=== PATIENT | female | born 1955 | race Caucasian/White ===

== ENCOUNTER 2017-12-17 14:21 | Outpatient (CLI) | payer BC ==
--- NOTE | 2017-12-17 16:55 | MRI ---
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 COMPARISON: 12/12/14 and 11/05/12. TECHNIQUE: Multiple sequences obtained in axial, sagittal, and coronal planes; both whole brain images and thin slices through the IAC's, pre and post IV injection of gadolinium-based contrast agent: 14 mL of Mult ihance. FINDINGS: Again demonstrated is the enhancing solid mass at the right cerebellopontine angle cistern, displacin g the dominic and right middle cerebral peduncle mildly to the left, and filling the majority of the vol ume of the right internal auditory canal. Exact measurements depend on particular placement of cursor s. Rough dimensions are approximately 15 x 15 x 14 mm. This has not significantly changed in size, al lowing for differences in exact cursor placement, compared to 2011 and 2014. In addition to completely enveloping the right 7th-8th nerve complex, the mass also chronically impin ges on the root entry zone of the right 5th cranial nerve (right trigeminal nerve), at the dominic. There are minimal chronic ischemic white matter changes of the cerebrum. No obstructive hydrocephalus . No abnormal intra-axial enhancement, restricted diffusion, supratentorial mass effect, midline shif t, or extra-axial fluid collection. IMPRESSION: 1. Right vestibular schwannoma (aka acoustic neuroma) at the right cerebellopontine angle and ri ght internal auditory canal, unchanged since 11/05/2012. 2. It is slightly smaller than it was in 06/04/2010. SIENNA Rossi POS: YUNG
== END 2017-12-17 14:22 | disposition home or self-care (01) ==
LOC: MRI 14:21 → TBSIIMAG 14:22
PROVIDERS: ATTEND Neurological Surgery
DX: D49.6 Neoplasm of unspecified behavior of brain (principal); D33.3 Benign neoplasm of cranial nerves
CPT/HCPCS: 70553

== ENCOUNTER 2018-03-04 08:18 | Outpatient (CLI) | payer BC | END 2018-03-04 08:19 | disposition home or self-care (01) | LOC: BICMAMMO 08:18 | PROVIDERS: ATTEND Family Medicine | DX: Z12.31 Encounter for screening mammogram for malignant neoplasm of breast (principal) | CPT/HCPCS: 77063; 77067 ==

== ENCOUNTER 2019-03-07 10:49 | Outpatient (CLI) | payer BC ==
--- NOTE | 2019-03-07 13:50 | MMO ---
Bilateral MAMMO Bilat Screen [facility]. CLINICAL HISTORY: Patient is 63 years old and is seen for screening. The patient has no family history of breast cancer. The patient has no personal history of cancer. VIEWS: The views performed were: bilateral craniocaudal with tomosynthesis and bilateral mediolateral oblique with tomosynthesis. FILMS COMPARED: The present examination has been compared to prior imaging studies performed at [facility] on 07/31/2004, 09/16/2005, 09/17/2006, 11/30/2007, 12/01/2008, 12/24/2009, 12/25/2010, 12/26/2011, 12/27/2012, 02/02/2014, 02/06/2015, 02/08/2016, 02/25/2017 and 03/04/2018, and at [facility] on 03/24/2003. MAMMOGRAM FINDINGS: The breasts are heterogeneously dense, which could obscure a lesion on mammography. There are no suspicious masses, suspicious calcifications, or new areas of architectural distortion. IMPRESSION: THERE IS NO MAMMOGRAPHIC EVIDENCE OF MALIGNANCY. A ROUTINE FOLLOW-UP MAMMOGRAM IN 1 YEAR IS RECOMMENDED. THE RESULTS OF THIS EXAM WERE SENT TO THE PATIENT. ACR BI-RADS Category 1 - Negative MAMMOGRAPHY NOTE: 1. A negative mammogram report should not delay a biopsy if a dominant of clinically suspicious mass is present. 2. Approximately 10% to 15% of breast cancers are not detected by mammography. 3. Adenosis and dense breasts may obscure an underlying neoplasm.
== END 2019-03-07 10:50 | disposition home or self-care (01) ==
LOC: BICMAMMO 10:49
PROVIDERS: ATTEND Family Medicine
DX: Z12.31 Encounter for screening mammogram for malignant neoplasm of breast (principal)
CPT/HCPCS: 77063; 77067

== ENCOUNTER 2019-08-19 21:14 | Emergency (ER) | payer BC ==
[2019-08-19 21:56] LABS: #Eosinphils 0.7 thou/uL (0.0-0.7); #Lymphocytes 1.9 thou/uL (1.20-3.40); #Monocytes 0.8 thou/uL (0.11-0.59); #Neutrophils 4.5 thou/uL (1.40-6.50); %Basophils 0.6 % (0.0-1.0); %Eosinophils 8.4 % (0.0-10.0); %Lymphocytes 24.1 % (21.0-51.0); %Monocytes 10.1 % (0.0-10.0); %Neutrophils 56.8 % (42.0-75.0); Mean Corpuscular HGB CONC 34.1 g/dL (32.0-36.0); Mean Corpuscular Volume 90.8 fL (78.0-98.0); Mean Platelet Volume 6.9 fL (7.4-10.4); Platelet Count 286 thou/uL (130-400); RBC Distribution Width 12.7 % (11.5-14.5); Red Blood Cell (RBC) Count 4.86 mill/uL (4.20-5.40); White Blood Cell (WBC) Count 7.9 thou/uL (4.8-10.8)
[2019-08-19 21:59] LABS: Bacteria/HPF None Seen HPF (None Seen); Bilirubin Negative (Negative); Blood, Urine Negative (Negative); Clarity Clear (Clear); Glucose, Urine (Dipstick) Normal (Negative); Leukocyte 250 Leu/uL (Negative); Nitrite Negative (Negative); Protein, Urine (Dipstick) 20 mg/dL (Neg-Trace); RBC/HPF 0-3 HPF (0-3); Urobilinogen Normal mg/dL (Less than 2)
[2019-08-19] MEDS ORDERED: Ondansetron PF 4 MG/2 ML Vial ONE (22:03)
[2019-08-19] MEDS ORDERED: Morphine 4 MG/ML VIAL ONE (22:03)
[2019-08-19 22:09] LABS: ALT (SGPT) 34 U/L (8-55); AST (SGOT) 29 U/L (5-34); Albumin 4.1 g/dL (3.4-4.8); Alkaline Phosphatase 102 U/L (40-110); Anion Gap 15 mmol/L (10-20); BUN (Urea Nitrogen) 11 mg/dL (9.8-20.1); Bilirubin, Total 0.2 mg/dL (0.2-1.2); Calc. Creatinine Clearance 0 mL/min (70-130); Calcium 9.2 mg/dL (7.8-10.44); Carbon Dioxide 26 mmol/L (23-31); Chloride 95 mmol/L (98-107); Estimated GFR-MDRD 63; Globulin 2.6 g/dL (2.4-3.5); Glucose 96 mg/dL (80-115); Potassium 3.7 mmol/L (3.5-5.1); Protein, Total 6.7 g/dL (6.0-8.3); Sodium 132 mmol/L (136-145)
--- NOTE | 2019-08-19 22:58 | ULT ---
US Gallbladder RUQ HISTORY: Right upper quadrant pain. COMPARISON: None. FINDINGS: Real-time imaging of the right upper quadrant shows a slightly distended gallbladder with w hat appears be some minimal sludge but no stones identified. No gallbladder wall thickening. There is a negative ultrasound Casillas sign. The common duct is 5 mm. Visualized liver parenchyma shows no f ocal findings. Right kidney is normal in size and not obstructed. The pancreas is obscured. IMPRESSION: Slightly distended gallbladder with minimal sludge.
== END 2019-08-20 00:15 | disposition home or self-care (01) ==
LOC: ERS 21:14
DX: R11.2 Nausea with vomiting, unspecified (principal); G43.909 Migraine, unspecified, not intractable, without status migrainosus; Z79.899 Other long term (current) drug therapy
CPT/HCPCS: 76705; 80053; 81003; 81015; 83690; 85025; 96374; 96375; J2270; J2405

== ENCOUNTER 2019-11-10 07:31 | Outpatient (CLI) | payer BC ==
--- NOTE | 2019-11-10 10:49 | NM ---
HEPATOBILIARY SCAN: HISTORY:Right upper quadrant pain. No gallstones and ultrasound of 08/19/2019 RADIOPHARMACEUTICAL: 5 mCi Technetium 99m Mebrofenin injected intravenously FINDINGS: There is normal tracer extraction by the liver with normal excretion into the biliary tracts and smal l bowel loops and normal filling of the gallbladder. The calculated gallbladder ejection fraction following an oral fatty meal measures 99%. IMPRESSION:Normal exam.
== END 2019-11-10 07:32 | disposition home or self-care (01) ==
LOC: NM 07:31
PROVIDERS: ATTEND Internal Medicine Gastroenterology
DX: K31.5 Obstruction of duodenum (principal); R93.5 Abnormal findings on diagnostic imaging of other abdominal regions, including retroperitoneum; R10.11 Right upper quadrant pain
CPT/HCPCS: 78227; A9537

== ENCOUNTER 2020-05-17 09:15 | Outpatient (CLI) | payer BC ==
--- NOTE | 2020-05-17 09:58 | MMO ---
Bilateral MAMMO Bilat Screen [facility]. CLINICAL HISTORY: Patient is 64 years old and is seen for screening. The patient has no family history of breast cancer. The patient has no personal history of cancer. VIEWS: The views performed were: bilateral craniocaudal with tomosynthesis and bilateral mediolateral oblique with tomosynthesis. FILMS COMPARED: The present examination has been compared to prior imaging studies performed at [facility] on 02/08/2016, 02/25/2017, 03/04/2018 and 03/07/2019. This study has been interpreted with the assistance of computer-aided detection. MAMMOGRAM FINDINGS: The breasts are heterogeneously dense, which could obscure a lesion on mammography. There are no suspicious masses, suspicious calcifications, or new areas of architectural distortion. IMPRESSION: THERE IS NO MAMMOGRAPHIC EVIDENCE OF MALIGNANCY. A ROUTINE FOLLOW-UP MAMMOGRAM IN 1 YEAR IS RECOMMENDED. THE RESULTS OF THIS EXAM WERE SENT TO THE PATIENT. ACR BI-RADS Category 1 - Negative MAMMOGRAPHY NOTE: 1. A negative mammogram report should not delay a biopsy if a dominant of clinically suspicious mass is present. 2. Approximately 10% to 15% of breast cancers are not detected by mammography. 3. Adenosis and dense breasts may obscure an underlying neoplasm. Reported by: DALLAS HERNANDEZ MD Electonically Signed: [id number]
== END 2020-05-17 09:16 | disposition home or self-care (01) ==
LOC: BICMAMMO 09:15
PROVIDERS: ATTEND Family Medicine
DX: Z12.31 Encounter for screening mammogram for malignant neoplasm of breast (principal)
CPT/HCPCS: 77063; 77067

== ENCOUNTER 2020-09-03 08:44 | Outpatient (CLI) | payer BC ==
--- NOTE | 2020-09-03 10:02 | ULT ---
ULTRASOUND ABDOMEN: HISTORY: Right upper quadrant abdominal pain FINDINGS: The liver, spleen, gallbladder, pancreas, kidneys and visualized portions of the aorta and IVC appear normal. The common duct measures 4mm in diameter. No free fluid is seen. IMPRESSION: Normal exam.
== END 2020-09-03 08:45 | disposition home or self-care (01) ==
LOC: BICULT 08:44
PROVIDERS: ATTEND Family Medicine
DX: R10.11 Right upper quadrant pain (principal)
CPT/HCPCS: 93975

== ENCOUNTER 2021-05-20 11:12 | Outpatient (CLI) | payer BC | END 2021-05-20 11:13 | disposition home or self-care (01) | LOC: BICMAMMO 11:12 | PROVIDERS: ATTEND Family Medicine | DX: Z12.31 Encounter for screening mammogram for malignant neoplasm of breast (principal) | CPT/HCPCS: 77063; 77067 ==

== ENCOUNTER 2022-06-27 12:16 | Emergency (ER) | payer BC ==
[2022-06-27] MEDS ORDERED: Diazepam 5 MG TAB ONE (13:06)
== END 2022-06-27 13:20 | disposition home or self-care (01) ==
LOC: ERS 12:16
DX: M25.511 Pain in right shoulder (principal)
CPT/HCPCS: 99283

== ENCOUNTER 2022-06-30 09:45 | Outpatient (CLI) | payer BC | END 2022-06-30 09:46 | disposition home or self-care (01) | LOC: BICRAD 09:45 | PROVIDERS: ATTEND Family Medicine | DX: M47.22 Other spondylosis with radiculopathy, cervical region (principal); M43.12 Spondylolisthesis, cervical region | CPT/HCPCS: 72040 ==

== ENCOUNTER 2022-07-10 11:21 | Outpatient (CLI) | payer BC | END 2022-07-10 11:22 | disposition home or self-care (01) | LOC: SCSMRI 11:21 | PROVIDERS: ATTEND Family Medicine | DX: M50.122 Cervical disc disorder at C5-C6 level with radiculopathy (principal) | CPT/HCPCS: 72156; 82565 ==

== ENCOUNTER 2022-12-02 08:28 | Outpatient (CLI) | payer BC | END 2022-12-02 08:29 | disposition home or self-care (01) | LOC: TBSIIMAG 08:28 | PROVIDERS: ATTEND Neurological Surgery | DX: D33.3 Benign neoplasm of cranial nerves (principal); C71.6 Malignant neoplasm of cerebellum | CPT/HCPCS: 70553 ==

== ENCOUNTER 2023-08-25 08:02 | Outpatient (CLI) | payer BC | END 2023-08-25 08:03 | disposition home or self-care (01) | LOC: BICMAMMO 08:02 | PROVIDERS: ATTEND Family Medicine | DX: Z12.31 Encounter for screening mammogram for malignant neoplasm of breast (principal); Z13.820 Encounter for screening for osteoporosis; M85.851 Other specified disorders of bone density and structure, right thigh; Z78.0 Asymptomatic menopausal state | CPT/HCPCS: 77063; 77067; 77080 ==

== ENCOUNTER 2024-09-11 06:24 | Emergency (ER) | payer BC ==
[2024-09-11 06:53] LABS: #Basophils 0.04 10x3/uL (0.0-0.2); %Basophils 0.3 % (0.0-1.0); %Eosinophils 0.3 % (0.0-10.0); %Lymphocytes 10.6 % (21.0-51.0); %Monocytes 13.5 % (0.0-10.0); %Neutrophils 73.7 % (42.0-75.0); Hematocrit 26.6 % (36.0-47.0); Hemoglobin 8.5 g/dL (12.0-16.0); Mean Platelet Volume 9.1 fL (7.4-10.4); Platelet Count 408 10x3/uL (130-400); RBC Distribution Width 15.5 % (11.5-14.5); Red Blood Cell (RBC) Count 2.83 mill/uL (4.20-5.40)
[2024-09-11 07:14] LABS: ALT (SGPT) 14 U/L (8-55); AST (SGOT) 13 U/L (5-34); Albumin 2.4 g/dL (3.4-4.8); Alkaline Phosphatase 236 U/L (40-110); Anion Gap 11 mmol/L (10-20); BUN (Urea Nitrogen) 7 mg/dL (9.8-20.1); Bilirubin, Total 0.5 mg/dL (0.2-1.2); Calc. Creatinine Clearance 0 mL/min (70-130); Calcium 9.1 mg/dL (7.8-10.44); Carbon Dioxide 29 mmol/L (23-31); Chloride 97 mmol/L (98-107); Estimated GFR 96; Globulin 3.6 g/dL (2.4-3.5); Glucose 107 mg/dL (80-115); Potassium 3.7 mmol/L (3.5-5.1); Sodium 133 mmol/L (136-145)
[2024-09-11 07:33] LABS: INR-International Normal Ratio 1.2; Prothrombin Time 15.4 sec (12.0-14.7)
[2024-09-11 07:34] LABS: PTT 42.6 sec (22.9-36.1)
[2024-09-11] MEDS ORDERED: Ondansetron PF 4 MG/2 ML Vial ONE (09:19)
[2024-09-11] MEDS ORDERED: Morphine 4 MG/ML VIAL ONE (09:19)
[2024-09-11] MEDS ORDERED: Acetaminophen 500 MG TAB ONE (09:29)
== END 2024-09-11 10:36 | disposition short-term general hospital (02) ==
LOC: ERS 06:24
DX: I62.00 Nontraumatic subdural hemorrhage, unspecified (principal); R53.1 Weakness; Z55.6 Problems related to health literacy; Z75.3 Unavailability and inaccessibility of health-care facilities
CPT/HCPCS: 80053; 85025; 85610; 85730; 93005; 96374; J2272; J2405

== ENCOUNTER 2025-11-16 22:07 | Emergency (ER) | payer BC ==
[2025-11-16] MEDS ORDERED: Droperidol 5 MG/2 ML VIAL ONE (23:19)
[2025-11-17] MEDS ORDERED: Ketorolac Tromethamine 30 MG (1 mL) VIAL ONE (01:33)
== END 2025-11-17 02:02 | disposition home or self-care (01) ==
LOC: ERS 22:07
DX: R51.9 Headache, unspecified (principal)
CPT/HCPCS: 70450; 96374; 96375; J1790; J1885